=== PATIENT | female | born 1970 | race Caucasian/White ===

== ENCOUNTER 2018-01-22 11:08 | Emergency (ER) | payer SELFPAY, OTHER | END 2018-01-22 20:11 | disposition left against medical advice (07) | LOC: FTE 20:11 | DX: Z53.21 Procedure and treatment not carried out due to patient leaving prior to being seen by health care provider (principal) ==

== ENCOUNTER 2018-05-18 07:09 | Day surgery (SDC) | payer OTHER ==
[~2018-05-18 07:09] MED LIST: CEFAZOLIN 1 GM INJ; CEFAZOLIN 2 GM/50 ML (PMX) 50 ML IVPB; DEXTROSE 5%-LR 1,000 ML IV; PHENYLephrine (100 MCG/ML) 5ML SYG
[2018-05-18] MEDS ORDERED: LIDOCAINE 2% (SDV) 5 ML INJ ×2 (08:28→08:29)
[2018-05-18] MEDS ORDERED: PROPOFOL 20 ML ×2 (08:28→08:29)
[2018-05-18] MEDS ORDERED: ONDANSETRON 4 MG INJ (08:29)
[2018-05-18] MEDS ORDERED: ONDANSETRON 4 MG INJ IV (08:30)
[2018-05-18] MEDS ORDERED: MEPERIDINE 25 MG INJ IV (08:30)
[2018-05-18] MEDS ORDERED: LABETALOL HCL 20MG INJ IV (08:30)
[2018-05-18] MEDS ORDERED: OXYCODONE/ACETAMINOPHEN (5/325) TAB PO ×2 (08:30)
[2018-05-18] MEDS ORDERED: FENTAnyl 50 MCG/ML VIAL (08:30)
[2018-05-18] MEDS ORDERED: FENTAnyl 50 MCG/ML VIAL IV ×2 (08:30)
[2018-05-18] MEDS ORDERED: MIDAZOLAM 1 MG/ML 2 ML INJ (08:31)
[2018-05-18] MEDS ORDERED: DEXAMETHASONE 4 MG/ML 1 ML INJ (09:05)
[2018-05-18] MEDS ORDERED: KETOROLAC 30 MG INJ IV (09:30)
== END 2018-05-18 11:10 | disposition home or self-care (01) ==
LOC: SDS 07:09
DX: N92.0 Excessive and frequent menstruation with regular cycle (principal); D25.9 Leiomyoma of uterus, unspecified; Z85.3 Personal history of malignant neoplasm of breast; Z92.21 Personal history of antineoplastic chemotherapy; Z92.3 Personal history of irradiation; Z79.810 Long term (current) use of selective estrogen receptor modulators (SERMs); E78.5 Hyperlipidemia, unspecified; N84.0 Polyp of corpus uteri
CPT/HCPCS: 58558; 71045; 88305; 93005

== ENCOUNTER 2018-07-13 06:47 | Day surgery (SDC) | payer OTHER ==
[2018-07-13] MEDS ORDERED: LIDOCAINE 4% SOLUTION 50 ML BTL (07:43)
[2018-07-13] MEDS ORDERED: MIDAZOLAM 1 MG/ML 2 ML INJ ×2 (08:18)
[2018-07-13] MEDS ORDERED: FENTAnyl 50 MCG/ML VIAL (08:18)
== END 2018-07-13 12:02 | disposition home or self-care (01) ==
LOC: GIL 06:47
DX: K29.50 Unspecified chronic gastritis without bleeding (principal); K64.4 Residual hemorrhoidal skin tags; R19.4 Change in bowel habit
CPT/HCPCS: 43239; 88305

== ENCOUNTER 2018-09-07 06:00 | Inpatient (IN) | payer OTHER ==
[2018-09-07] MEDS ORDERED: CEFAZOLIN 2 GM/50 ML (PMX) 50 ML IVPB (07:00)
[2018-09-07] MEDS ORDERED: hydrALAzine 20 MG INJ IV (08:00)
[2018-09-07] MEDS ORDERED: TRIMETHOBENZAMIDE 100 MG/ML VIAL IM (08:00)
[2018-09-07] MEDS ORDERED: HYDROmorphONE 1 MG/5 ML IV SYRINGE IV ×3 (08:00)
[2018-09-07] MEDS ORDERED: ALBUTEROL 0.083% (NEB) 2.5 MG/3 ML AMP HHN (08:00)
[2018-09-07] MEDS ORDERED: DIPHENHYDRAMINE 50 MG INJ IV (08:00)
[2018-09-07] MEDS ORDERED: ONDANSETRON 4 MG INJ IV (08:00)
[2018-09-07] MEDS ORDERED: OXYCODONE/ACETAMINOPHEN (5/325) TAB PO ×2 (08:00)
[2018-09-07] MEDS ORDERED: MIDAZOLAM 1 MG/ML 2 ML INJ IV (08:00)
[2018-09-07] MEDS ORDERED: MEPERIDINE 25 MG INJ IV (08:00)
[2018-09-07] MEDS ORDERED: LABETALOL HCL 20MG INJ IV (08:00)
[2018-09-07] MEDS ORDERED: IPRATROPIUM (NEB) 0.5 MG/2.5 ML AMP HHN (08:00)
[2018-09-07] MEDS ORDERED: EPHEDrine SULFATE 50 MG/5 ML SYG IV (08:00)
[2018-09-07] MEDS ORDERED: FENTAnyl 50 MCG/ML VIAL IV ×3 (08:00)
[2018-09-07] MEDS ORDERED: CEFAZOLIN 1 GM INJ (08:14)
[2018-09-07] MEDS ORDERED: MIDAZOLAM 1 MG/ML 2 ML INJ (08:14)
[2018-09-07] MEDS ORDERED: DEXAMETHASONE 4 MG/ML 1 ML INJ (08:14)
[2018-09-07] MEDS ORDERED: GLYCOPYRROLATE 0.4 MG INJ (08:14)
[2018-09-07] MEDS ORDERED: NEOSTIGMINE 3 MG/3 ML SYRINGE (08:14)
[2018-09-07] MEDS ORDERED: ROCURONIUM 50 MG INJ (08:14)
[2018-09-07] MEDS ORDERED: FENTAnyl 50 MCG/ML VIAL ×2 (08:14→10:10)
[2018-09-07] MEDS ORDERED: ONDANSETRON 4 MG INJ (08:14)
[2018-09-07] MEDS ORDERED: PROPOFOL 20 ML (08:14)
[2018-09-07] MEDS ORDERED: PHENYLephrine (100 MCG/ML) 5ML SYG (08:32)
[2018-09-07] MEDS ORDERED: KETOROLAC 30 MG INJ (10:10)
[2018-09-07] MEDS ORDERED: ZOLPIDEM 5 MG TAB PO (11:00)
[2018-09-07] MEDS ORDERED: HYDROCODONE/APAP (5/325) TAB PO ×2 (11:00)
[2018-09-07] MEDS ORDERED: ONDANSETRON INJ 6 MG in DEXTROSE 5% 50 ML IVPB (11:00)
[2018-09-07] MEDS ORDERED: BISACODYL (EC) 5 MG TAB PO (11:00)
[2018-09-07] MEDS ORDERED: DIPHENHYDRAMINE 50 MG CAP PO (11:00)
[2018-09-07] MEDS: KETOROLAC 30 MG INJ IV ×3 (12:10→23:13)
[2018-09-07] MEDS: LACTATED RINGER'S 1,000 ML IV ×2 (12:16→18:36)
[2018-09-07] MEDS: HYDROmorphONE 0.5 MG/0.5 ML SYG IV (13:25)
[2018-09-07] MEDS: METOCLOPRAMIDE 10 MG TAB PO ×3 (13:51→23:13)
[2018-09-07] MEDS: CEFAZOLIN 1 GM/50 ML (PMX) 50 ML IVPB ×2 (18:07→21:54)
[2018-09-08] MEDS: LACTATED RINGER'S 1,000 ML IV (01:31)
[2018-09-08 05:56] LABS: ADD MAN DIFF? NO; BASOPHILS % 0.1 % (0.0-2.0); HEMATOCRIT 26.2 % (37.0-47.0); LYMPHOCYTES # 1.1 10^3/ul (0.8-2.9); MEAN CORPUSCULAR HEMOGLOBIN 24.4 pg (29.0-33.0); MEAN CORPUSCULAR HGB CONC 30.5 g/dl (32.0-37.0); MEAN CORPUSCULAR VOLUME 79.9 fl (82.0-101.0); MEAN PLATELET VOLUME 10.1 fl (7.4-10.4); MONOCYTE # 0.7 10^3/ul (0.3-0.9); MONOCYTES % 6.5 % (0.0-11.0); NEUTROPHIL # 8.2 10^3/ul (1.6-7.5); PLATELET COUNT 304 10^3/UL (140-415); RED BLOOD COUNT 3.28 10^6/ul (4.20-5.40); RED CELL DISTRIBUTION WIDTH 15.7 % (11.5-14.5)
[2018-09-08] MEDS: CEFAZOLIN 1 GM/50 ML (PMX) 50 ML IVPB ×3 (05:59→21:27)
[2018-09-08] MEDS: KETOROLAC 30 MG INJ IV ×3 (05:59→17:43)
[2018-09-08] MEDS: METOCLOPRAMIDE 10 MG TAB PO ×3 (05:59→17:43)
[2018-09-08 06:56] LABS: ANION GAP 8 (5-13); BLOOD UREA NITROGEN 8 mg/dl (7-20); CARBON DIOXIDE 27 mmol/L (21-31); CHLORIDE 109 mmol/L (97-110); CREATININE 0.69 mg/dl (0.44-1.00); POTASSIUM 4.2 mmol/L (3.5-5.1); SODIUM 144 mmol/L (135-144)
[2018-09-08] MEDS ORDERED: BISACODYL (EC) 5 MG TAB PO (13:30)
[2018-09-08] MEDS: BISACODYL (EC) 5 MG TAB PO (15:20)
[2018-09-08] MEDS: SOD FERRIC GLUC COMPLX 125 MG in SOD CHLORIDE 0.9% 100 ML IVPB (16:29)
[2018-09-09] MEDS: KETOROLAC 30 MG INJ IV ×4 (00:19→17:49)
[2018-09-09] MEDS: METOCLOPRAMIDE 10 MG TAB PO ×5 (00:21→23:35)
[2018-09-09 05:37] LABS: ADD MAN DIFF? NO
[2018-09-09] MEDS: CEFAZOLIN 1 GM/50 ML (PMX) 50 ML IVPB (05:38)
[2018-09-09 05:48] LABS: BASOPHILS % 0.3 % (0.0-2.0); EOSINOPHILS % 0.3 % (0.0-7.0); HEMATOCRIT 26.9 % (37.0-47.0); HEMOGLOBIN 8.3 g/dl (12.0-16.0); LYMPHOCYTES # 1.4 10^3/ul (0.8-2.9); LYMPHOCYTES % 14.7 % (15.0-51.0); MEAN CORPUSCULAR HGB CONC 30.9 g/dl (32.0-37.0); MEAN PLATELET VOLUME 10.1 fl (7.4-10.4); MONOCYTE # 0.6 10^3/ul (0.3-0.9); MONOCYTES % 6.6 % (0.0-11.0); NEUTROPHIL # 7.5 10^3/ul (1.6-7.5); NEUTROPHILS % 77.7 % (39.0-77.0); PLATELET COUNT 295 10^3/UL (140-415); RED BLOOD COUNT 3.32 10^6/ul (4.20-5.40); RED CELL DISTRIBUTION WIDTH 16.1 % (11.5-14.5)
[2018-09-09 05:48] LABS: WHITE BLOOD COUNT 9.7 10^3/ul (4.8-10.8)
[2018-09-09] MEDS: SOD FERRIC GLUC COMPLX 125 MG in SOD CHLORIDE 0.9% 100 ML IVPB (17:56)
[2018-09-10] MEDS: METOCLOPRAMIDE 10 MG TAB PO ×2 (05:15→12:35)
[2018-09-10] MEDS: KETOROLAC 30 MG INJ IV (12:36)
[2018-09-10] MEDS: SOD FERRIC GLUC COMPLX 125 MG in SOD CHLORIDE 0.9% 100 ML IVPB (16:21)
== END 2018-09-10 18:40 | disposition home or self-care (01) | DRG 743 ==
LOC: REC 06:00 → 2NE 11:50
PROC: 0UT90ZL Resection of Uterus, Supracervical, Open Approach (ICD-10-PCS; principal; 2018-09-07 08:00)
PROC: 0UT70ZZ Resection of Bilateral Fallopian Tubes, Open Approach (ICD-10-PCS; 2018-09-07 08:00)
PROC: 0UT20ZZ Resection of Bilateral Ovaries, Open Approach (ICD-10-PCS; 2018-09-07 08:00)
DX: D25.1 Intramural leiomyoma of uterus (principal); N73.9 Female pelvic inflammatory disease, unspecified; Z85.3 Personal history of malignant neoplasm of breast; D50.9 Iron deficiency anemia, unspecified; N92.1 Excessive and frequent menstruation with irregular cycle; Z79.810 Long term (current) use of selective estrogen receptor modulators (SERMs); R73.03 Prediabetes; D64.9 Anemia, unspecified
CPT/HCPCS: 80051; 82565; 84520; 85025; 86850; 86900; 86901; 87086; 88305; 93005

== ENCOUNTER 2018-10-25 10:53 | Emergency (ER) | payer OTHER ==
[2018-10-25 12:57] LABS: ADD MAN DIFF? NO
[2018-10-25] MEDS: BELLADONNA/PHENOBARBITAL TAB PO (12:58)
[2018-10-25] MEDS: SOD CHLORIDE 0.9% 1,000 ML IV (12:58)
[2018-10-25] MEDS: LIDOCAINE/MYLANTA 40 ML BTL PO (12:58)
[2018-10-25] MEDS: KETOROLAC 15 MG INJ IV (12:58)
[2018-10-25] MEDS: ONDANSETRON 4 MG INJ IV (12:59)
[2018-10-25 13:05] LABS: WHITE BLOOD COUNT 4.5 10^3/ul (4.8-10.8)
[2018-10-25 13:05] LABS: BASOPHIL # 0.1 10^3/ul (0.0-0.1); BASOPHILS % 1.1 % (0.0-2.0); EOSINOPHILS # 0.1 10^3/ul (0.0-0.5); EOSINOPHILS % 2.2 % (0.0-7.0); HEMATOCRIT 38.2 % (37.0-47.0); HEMOGLOBIN 12.2 g/dl (12.0-16.0); LYMPHOCYTES # 1.6 10^3/ul (0.8-2.9); MEAN CORPUSCULAR HEMOGLOBIN 25.7 pg (29.0-33.0); MEAN CORPUSCULAR HGB CONC 31.9 g/dl (32.0-37.0); MEAN CORPUSCULAR VOLUME 80.6 fl (82.0-101.0); MEAN PLATELET VOLUME 9.3 fl (7.4-10.4); MONOCYTE # 0.3 10^3/ul (0.3-0.9); NEUTROPHIL # 2.4 10^3/ul (1.6-7.5); PLATELET COUNT 297 10^3/UL (140-415); RED BLOOD COUNT 4.74 10^6/ul (4.20-5.40); RED CELL DISTRIBUTION WIDTH 16.2 % (11.5-14.5)
[2018-10-25 13:09] LABS: ADD UMIC NO; UR ASCORBIC ACID NEGATIVE (NEGATIVE); UR BILIRUBIN (Dip) NEGATIVE (NEGATIVE); UR BLOOD (Dip) NEGATIVE (NEGATIVE); UR CLARITY CLEAR (CLEAR); UR COLOR STRAW (YELLOW); UR GLUCOSE (Dip) NEGATIVE (NEGATIVE); UR KETONES (Dip) NEGATIVE (NEGATIVE); UR LEUKOCYTE ESTERASE (Dip) NEGATIVE Leu/ul (NEGATIVE); UR NITRITE (Dip) NEGATIVE (NEGATIVE); UR TOTAL PROTEIN (Dip) NEGATIVE (NEGATIVE); UR UROBILINOGEN (Dip) NEGATIVE (NEGATIVE)
[2018-10-25 13:22] LABS: ALANINE AMINOTRANSFERASE 25 IU/L (13-69); ALBUMIN 4.5 g/dl (3.3-4.9); ALBUMIN/GLOBULIN RATIO 1.32; ALKALINE PHOSPHATASE 132 IU/L (42-121); ANION GAP 11 (5-13); ASPARTATE AMINO TRANSFERASE 28 IU/L (15-46); BILIRUBIN,INDIRECT 0.1 mg/dl (0-1.1); BILIRUBIN,TOTAL 0.1 mg/dl (0.2-1.3); BLOOD UREA NITROGEN 8 mg/dl (7-20); CALCIUM 9.8 mg/dl (8.4-10.2); CARBON DIOXIDE 26 mmol/L (21-31); CHLORIDE 104 mmol/L (97-110); CREATININE 0.75 mg/dl (0.44-1.00); Estimated GFR > 60 mL/min (>60); GLUCOSE 101 mg/dl (70-220); LIPASE 79 U/L (23-300); POTASSIUM 4.1 mmol/L (3.5-5.1); SODIUM 141 mmol/L (135-144); TOTAL PROTEIN 7.9 g/dl (6.1-8.1)
[2018-10-25 13:23] LABS: INR 0.89; PROTIME 12.1 Sec (11.9-14.9); PT RATIO 0.9
[2018-10-25 13:24] LABS: PARTIAL THROMBOPLASTIN TIME 29.1 Sec (23.0-35.0)
== END 2018-10-25 14:50 | disposition home or self-care (01) ==
LOC: E/R 10:53
DX: R10.13 Epigastric pain (principal); R40.2142 Coma scale, eyes open, spontaneous, at arrival to emergency department; R40.2362 Coma scale, best motor response, obeys commands, at arrival to emergency department; R40.2252 Coma scale, best verbal response, oriented, at arrival to emergency department; Z85.3 Personal history of malignant neoplasm of breast; Z85.858 Personal history of malignant neoplasm of other endocrine glands
CPT/HCPCS: 36415; 76705; 80053; 81003; 83690; 85025; 85610; 85730; 96374; 96375; 99285-25